=== PATIENT | female | born 1950 | race Caucasian/White ===

== ENCOUNTER 2020-10-29 13:55 | Inpatient (IN) | payer MEDICARE ==
[~2020-10-29] VITALS: Ht 165.1 cm; Wt 111.3 kg
--- NOTE | 2020-10-29 14:10 | PHYS DOC ---
Adult General Chief Complaint Chief Complaint: SHORTNESS OF BREATH HPI HPI Patient is a 70-year-old female presenting for shortness of breath. She presents via EMS from outlying [facility] where she [facility]. She has history of CAD, COPD, GERD, hyperlipidemia, bipolar, hypertension, heart failure and hypothyroidism. She states she has been at baseline health and on her typical 3 L of oxygen daily but admits approximately 3 days ago development of URI symptoms. She reports nasal congestion, rhinorrhea and postnasal drip that turned into worsened wheezing. Patient states she has been using her Spiriva inhaler in the morning and has had to use increase use of her albuterol inhaler every 6 hours in past 72 hours. This morning due to ongoing dyspnea, patient increased her oxygen from 3 L to 5 L via nasal cannula daily without significant improvement in symptoms prompting her to notify staff and request transfer to our ER for evaluation. Patient has had x2 Moderna vaccines Review of Systems Review of Systems Fourteen body systems of review of systems have been reviewed. See HPI for pertinent positives and negative responses, other guillermo all other systems are negative, non-pertinent or non-contributory Physical Exam Physical Exam Constitutional: Age-appropriate overweight female with mild respiratory distress on arrival, nontoxic in appearance HENT: Normocephalic, atraumatic, bilateral external ears normal, oropharynx moist, no oral exudates, nose normal. Nasal cannula in place Eyes: PERRLA, EOMI, conjunctiva normal, no discharge. Neck: Normal range of motion, no tenderness, supple, no stridor. Cardiovascular: Heart rate regular, sinus rhythm, no murmurs rubs or gallops Lungs & Thorax: Increased work of breathing with accessory muscle use and neck noted, patient has diffuse wheezes most prominent on end expiratory phases, bilateral rails to lower bases Abdomen: Bowel sounds normal, soft, no tenderness, no masses, no pulsatile masses. Nonsurgical abdomen, no peritoneal signs Skin: Warm, dry, no erythema, no rash. Back: No tenderness, no CVA tenderness. Extremities: No tenderness, no cyanosis, no clubbing, ROM intact, no edema. Neurologic: Alert and oriented X 3, grossly normal motor & sensory function, no focal deficits noted. Psychologic: Anxious affect and mood Current Patient Data Vital Signs Vital Signs Date Time Temp Pulse Resp B/P (MAP) Pulse Ox O2 Delivery O2 Flow Rate FiO2 10/29/20 13:55 97.7 61 33 201/98 (132) 100 Nasal Cannula 6.0 Vital Signs Date Time Temp Pulse Resp B/P (MAP) Pulse Ox O2 Delivery O2 Flow Rate FiO2 10/30/20 06:21 64 21 157/86 (109) 94 Nasal Cannula 4.0 10/30/20 06:00 98.1 Lab Results Laboratory Tests Test 10/29/20 14:30 10/29/20 16:39 10/29/20 23:08 10/30/20 05:42 White Blood Count 9.0 x10^3/uL 5.8 x10^3/uL Red Blood Count 3.74 x10^6/uL 3.40 x10^6/uL Hemoglobin 10.8 g/dL 9.8 g/dL Hematocrit 34.9 % 31.3 % Mean Corpuscular Volume 93 fL 92 fL Mean Corpuscular Hemoglobin 29 pg 29 pg Mean Corpuscular Hemoglobin Concent 31 g/dL 31 g/dL Red Cell Distribution Width 21.5 % 21.5 % Platelet Count 296 x10^3/uL 256 x10^3/uL Neutrophils (%) (Auto) 82 % 75 % Lymphocytes (%) (Auto) 7 % 9 % Monocytes (%) (Auto) 7 % 10 % Eosinophils (%) (Auto) 4 % 6 % Basophils (%) (Auto) 1 % 0 % Neutrophils # (Auto) 7.4 x10^3uL 4.3 x10^3uL Lymphocytes # (Auto) 0.6 x10^3/uL 0.5 x10^3/uL Monocytes # (Auto) 0.6 x10^3/uL 0.6 x10^3/uL Eosinophils # (Auto) 0.3 x10^3/uL 0.3 x10^3/uL Basophils # (Auto) 0.0 x10^3/uL 0.0 x10^3/uL Platelet Estimate Adequate Anisocytosis Slight Urine Collection Type Unknown Urine Color Yellow Urine Clarity Hazy Urine pH 6.0 Urine Specific Matador 1.015 Urine Protein 30 mg/dl Urine Glucose (UA) Neg mg/dL Urine Ketones (Stick) Neg mg/dL Urine Blood Trace Urine Nitrite Neg Urine Bilirubin Neg Urine Urobilinogen Dipstick 0.2 mg/dL Urine Leukocyte Esterase Trace Urine RBC 3-5 /HPF Urine WBC 11-20 /HPF Urine Squamous Epithelial Cells Mod /LPF Urine Bacteria Mod /HPF Sodium Level 141 mmol/L Potassium Level 4.3 mmol/L Chloride Level 103 mmol/L Carbon Dioxide Level 28 mmol/L Anion Gap 10 Blood Urea Nitrogen 10 mg/dL Creatinine 0.8 mg/dL Estimated GFR (Cockcroft-Gault) 71.1 Glucose Level 133 mg/dL Calcium Level 9.2 mg/dL Troponin I Quantitative 0.017 ng/mL AG-Ohv-S-Type Natriuretic Peptide 9175 pg/mL Coronavirus (COVID-19)(PCR) Negative SARS-CoV-2 Antigen (Rapid) Negative Glucose (Fingerstick) 136 mg/dL Current Medications Medications (Trade) Dose Ordered Sig/Norberto Route PRN Reason Start Time Stop Time Status Last Admin Dose Admin Albuterol/ Ipratropium (Duoneb) 3 ml STK-MED ONCE .ROUTE 10/29/20 14:18 10/29/20 14:18 DC Albuterol/ Ipratropium (Duoneb) 3 ml 1X ONCE NEB 10/29/20 14:30 10/29/20 16:06 DC 10/29/20 16:31 Nitroglycerin (Nitrostat) 0.4 mg PRN Q5MIN PRN SL CHEST PAIN 10/29/20 15:30 10/29/20 16:15 DC 10/29/20 16:03 Azithromycin 500 mg/Sodium Chloride 250 ml @ 250 mls/hr 1X ONCE IV 10/29/20 16:00 10/29/20 16:59 DC 10/29/20 16:12 Ceftriaxone Sodium 1 gm/ Sodium Chloride 50 ml @ 100 mls/hr 1X ONCE IV 10/29/20 16:00 10/29/20 16:29 DC 10/29/20 16:06 Furosemide (Lasix) 100 mg 1X ONCE IVP 10/29/20 16:00 10/29/20 16:06 DC 10/29/20 16:12 Sodium Chloride 50 ml @ As Directed STK-MED ONCE .ROUTE 10/29/20 16:00 10/29/20 16:01 DC Sodium Chloride 500 ml @ As Directed STK-MED ONCE .ROUTE 10/29/20 16:00 10/29/20 16:01 DC Azithromycin (Zithromax) 500 mg STK-MED ONCE IV 10/29/20 16:00 10/29/20 16:01 DC Ceftriaxone Sodium (Rocephin) 1 gm STK-MED ONCE .ROUTE 10/29/20 16:01 10/29/20 16:01 DC EKG EKG EKG ordered and interpreted by myself at 1419 hrs. as sinus rhythm at 61 bpm, pr olonged QTC at 471 otherwise unremarkable intervals, no axis deviation, no STEMI Radiology/Procedures Radiology/Procedures EXAMINATION: XR CHEST 1V CLINICAL HISTORY: Shortness of breath EXAM DATE/TIME: 10/29/2020 2:40 PM COMPARISON: None FINDINGS: Lines, Tubes, and Devices: Left-sided cardiac pacemaker/ICD. Cardiomediastinal Silhouette: Prominent cardiac silhouette, likely accentuated by low lung volumes. Lungs and Pleura: Questionable mild patchy opacities in the right mid to lower lung zone. No evidence of pleural effusion or pneumothorax. Bones and Soft Tissues: Extensive thoracic stabilization hardware. Cervicothoracic fusion hardware. Surgical clips projected over the lower right neck. Partially visualized left shoulder arthroplasty. IMPRESSION: Questionable mild patchy airspace disease in the right mid to lower lung zone. Electronically signed by: Сергей Horton DO (10/29/2020 2:54 PM) [facility] [place] Heart Score C/O Chest Pain: No HEART Score for Chest Pain: HEART Score for Chest Pain Response (Comments) Value History Moderately Suspicious 1 ECG Nonspecific Repolarizatio 1 Age > 65 2 Risk Factors >3 Risk Factors or Hx CAD 2 Troponin < Normal Limit 0 Total 6 Risk Factors: Risk Factors: DM, Current or recent (<one month) smoker, HTN, HLP, family history of CAD, obesity. Risk Scores: Risk Factors: DM, Current or recent (<one month) smoker, HTN, HLP, family history of CAD, obesity. Course & Med Decision Making Course & Med Decision Making Airway patent, breathing labored in mild distress, IV access and vitals obtained concerning for increased need of supplemental oxygen to maintain oxygen saturations greater than 90%, hypertension, and tachypnea HPI, physical examination and comprehensive ER work-up nonconcerning for any emergent or surgical issues With that said, patient case complicated. She presents in fluid overloaded state with history of heart failure of unknown etiology. Physical exam and ER findings concerning for acute exacerbation of CHF, 100 mg IV Lasix administered Patient also presenting with wheezes and increased O2 requirements. Question due to fluid overloaded state or underlying history of COPD for which she has had to use her rescue inhaler more which has helped her symptoms. 125 mg Solu- Medrol, breathing tx and IV antibiotics started I contacted hospitalist, Dr. Brody, and discussed need for hospitalization. He agreed and accepted patient under his care I have updated patient on proposed plan of care that included hospitalization for further inpatient medical management, she was amenable. She reiterates she is full CODE STATUS at time of admission. All questions and concerns addressed prior to admission to [facility] Drag Disclaimer [facility] Disclaimer This electronic medical record was generated, in whole or in part, using a voice recognition dictation system. Departure Departure: Impression: Primary Impression: Acute on chronic respiratory failure with hypoxia Additional Impression: Heart failure of unknown etiology Disposition: ADMITTED INPATIENT Admitting Physician: Ten Brody Condition: STABLE Problem Qualifiers ELIO LOVE DO Oct 29, 2020 14:10
[2020-10-29] MEDS ORDERED: IPRATRPIUM/ALBUTEROL 0.5/2.5MG 3 ML NEBU. ONE (14:18)
[2020-10-29] MEDS ORDERED: IPRATRPIUM/ALBUTEROL 0.5/2.5MG 3 ML NEBU. NEB ONE (14:30)
--- NOTE | 2020-10-29 14:56 | RAD ---
EXAMINATION: XR CHEST 1V CLINICAL HISTORY: Shortness of breath EXAM DATE/TIME: 10/29/2020 2:40 PM COMPARISON: None FINDINGS: Lines, Tubes, and Devices: Left-sided cardiac pacemaker/ICD. Cardiomediastinal Silhouette: Prominent cardiac silhouette, likely accentuated by low lung volumes. Lungs and Pleura: Questionable mild patchy opacities in the right mid to lower lung zone. No evidence of pleural effusion or pneumothorax. Bones and Soft Tissues: Extensive thoracic stabilization hardware. Cervicothoracic fusion hardware. S urgical clips projected over the lower right neck. Partially visualized left shoulder arthroplasty. IMPRESSION: Questionable mild patchy airspace disease in the right mid to lower lung zone. Electronically signed by: Сергей Horton DO (10/29/2020 2:54 PM) [facility]
[2020-10-29 15:03] LABS: BASO % 1 % (0-3); EOS # 0.3 x10^3/uL (0.0-0.7); EOS % 4 % (0-3); HEMATOCRIT 34.9 % (36.0-47.0); HEMOGLOBIN 10.8 g/dL (12.0-15.5); LYMPH # 0.6 x10^3/uL (1.0-4.8); LYMPH % 7 % (24-48); MEAN CORPUSCULAR HEMOGLOBIN 29 pg (25-35); MEAN CORPUSCULAR HGB CONC 31 g/dL (31-37); MEAN CORPUSCULAR VOLUME 93 fL (79-100); MONO # 0.6 x10^3/uL (0.0-1.1); MONO % 7 % (0-9); NEUT # 7.4 x10^3uL (1.8-7.7); NEUT % 82 % (31-73); PLATELET COUNT 296 x10^3/uL (140-400); RED BLOOD COUNT 3.74 x10^6/uL (3.50-5.40); RED CELL DISTRIBUTION WIDTH 21.5 % (11.5-14.5)
[2020-10-29 15:05] LABS: CALCIUM 9.2 mg/dL (8.5-10.1); CREATININE 0.8 mg/dL (0.6-1.0); GFR 71.1; POTASSIUM 4.3 mmol/L (3.5-5.1)
[2020-10-29 15:13] LABS: BACTERIA,URINE MOD /HPF (0-FEW); BILIRUBIN,URINE NEG (NEG); CLARITY,URINE HAZY; COLOR,URINE YELLOW; GLUCOSE,URINE NEG (NEG); NITRITE,URINE NEG (NEG); SQUAMOUS EPITHELIAL CELL,UR MOD /LPF; UROBILINOGEN,URINE 0.2 mg/dL (0.2 mg/dL)
[2020-10-29] MEDS ORDERED: NITROGLYCERIN SUBLINGUAL 0.4 MG BOTTLE OF 25. SL PRN (15:30)
--- NOTE | 2020-10-29 15:31 | EKG ---
[address] [address] Test Date: 2020-10-29 Test Time: 14:12:58 Pat Name: ZACHARY MCDUFFIE Department: Room: Gender: F Warp Hand: PATY : 1950 Requested By: ELIO LOVE Order Number: [id number] Reading MD: Measurements Intervals [place] Rate: 61 P: 90 AL: 174 QRS: -3 QRSD: 108 T: -5 QT: 462 QTc: 471 Interpretive Statements SINUS RHYTHM NO SPECIFIC ECG ABNORMALITIES RI6.02 No previous ECG available for comparison
[2020-10-29 15:32] LABS: ANISOCYTOSIS SLIGHT; PLT ESTIMATE ADEQUATE (ADEQUATE)
[2020-10-29] MEDS ORDERED: AZITHROMYCIN 500 MG VIAL. IV ONE (16:00)
[2020-10-29] MEDS ORDERED: IV NORMAL SALINE 50ML 50 ML ONE (16:00)
[2020-10-29] MEDS ORDERED: AZITHROMYCIN 500 MG in IV NORMAL SALINE 250ML 250 ML IV ONE (16:00)
[2020-10-29] MEDS ORDERED: FUROSEMIDE 100 MG/10 ML VIAL IVP ONE (16:00)
[2020-10-29] MEDS ORDERED: IV NORMAL SALINE 500ML 500 ML ONE (16:00)
[2020-10-29] MEDS ORDERED: cefTRIAXone SODIUM 1 GM VIAL ONE (16:01)
[2020-10-29] MEDS ORDERED: ACETAMINOPHEN 325 MG TABLET PO PRN (16:15)
[2020-10-29] MEDS: NITROGLYCERIN SUBLINGUAL 0.4 MG BOTTLE OF 25. SL PRN ×2 (17:26→18:15)
[2020-10-29 19:15] VITALS: BP 160/79
--- NOTE | 2020-10-29 19:15 | NUR ---
Pt was admitted to ICU bed 6 from ER via [facility], accompanied by EMS and nursing staff. Pt pulled over from [facility] to bed x4 assist. Admission assessment completed. VSS. Pt on baseline O2 at 4L NC with O2sat >92%. Pt placed on telemetry, SR or A.paced noted on monitor. Pt recently had hospitalization (10/06-10/19) and pacemaker placed at . Pt was discharge from to [facility] for PT/OT rehab with the hope of going back home to live alone in [place]. Pt with healing left chest pacemaker incision, left ODALYS. Pt with Patel catheter to dependent drainage, clear yellow urine noted. Health history and home medications reviewed with pt and paperwork from [facility]. Pt UTD on Covid vaccine, had Moderna in May and June. Pt refused her flu vaccine, stating "I will get it a little later in the year." PT/OT and CM consulted. Pradaxa & ASA for VTE. Pt was given written information regarding hospital policies, unit procedures and contact persons. Valuables were checked and left at bedside per pt request. Pt given box lunch which she ate independently.
[2020-10-29 20:00] VITALS: BP 145/83
[2020-10-29] MEDS ORDERED: IPRATRPIUM/ALBUTEROL 0.5/2.5MG 3 ML NEBU. NEB PRN (20:00)
[2020-10-29] MEDS ORDERED: NYSTATIN TOPICAL POWDER 15GM BOTTLE. TP PRN (20:00)
[2020-10-29] MEDS ORDERED: ACET500T68 PO (20:32)
[2020-10-29] MEDS ORDERED: POTA20TA4 PO (20:32)
[2020-10-29] MEDS ORDERED: VALP250C2 PO (20:32)
[2020-10-29] MEDS ORDERED: FERR325T14 PO (20:32)
[2020-10-29] MEDS ORDERED: IPRA3AMP29 NEB (20:32)
[2020-10-29] MEDS ORDERED: TIOT4MIS2 IH (20:32)
[2020-10-29] MEDS ORDERED: CHLO473M MM (20:32)
[2020-10-29] MEDS ORDERED: ALBU2.5V8 IH (20:32)
[2020-10-29] MEDS ORDERED: SENN8.6T11 PO (20:32)
[2020-10-29] MEDS ORDERED: METF850T8 PO (20:32)
[2020-10-29] MEDS ORDERED: POLY17PO5 PO (20:32)
[2020-10-29] MEDS ORDERED: PANT40TA6 PO (20:32)
[2020-10-29] MEDS ORDERED: METO100T7 PO (20:32)
[2020-10-29] MEDS ORDERED: NYST15PO9 TP (20:32)
[2020-10-29] MEDS ORDERED: DOCU50CA11 PO (20:32)
[2020-10-29] MEDS ORDERED: DULO60CA6 PO (20:32)
[2020-10-29] MEDS ORDERED: DABI150C PO (20:32)
[2020-10-29] MEDS ORDERED: [UNRECOGNIZED DRUG - CODE] PO (20:32)
[2020-10-29] MEDS ORDERED: ASPI-630 PO (20:32)
[2020-10-29] MEDS ORDERED: DOXY-181 PO (20:32)
[2020-10-29] MEDS ORDERED: GABA-586 PO (20:32)
[2020-10-29] MEDS ORDERED: TORS10TA3 PO (20:32)
[2020-10-29] MEDS ORDERED: ASCO500T3 PO (20:32)
[2020-10-29] MEDS ORDERED: ATOR40TA PO (20:32)
[2020-10-29] MEDS ORDERED: DEXTROSE 50% 25 GM / 50ML DISP.SYRIN. IV PRN (20:45)
[2020-10-29 21:00] VITALS: BP 146/76
[2020-10-29] MEDS ORDERED: ALBUTEROL SULFATE 2.5 MG/3 ML NEBU. NEB PRN (21:15)
[2020-10-29] MEDS: POLYETHYLENE GLYCOL 3350 17 GM PACKET. PO SCH (21:18)
[2020-10-29] MEDS: DOXYCYCLINE HYCLATE 100 MG TABLET PO SCH (21:19)
[2020-10-29] MEDS: DABIGATRAN ETEXILATE 150 MG CAPSULE. PO SCH (21:19)
[2020-10-29] MEDS: METOPROLOL TART IMMED RELEASE 50 MG TABLET PO SCH (21:19)
[2020-10-29] MEDS: IPRATRPIUM/ALBUTEROL 0.5/2.5MG 3 ML NEBU. NEB SCH (21:19)
[2020-10-29] MEDS: GABAPENTIN 300 MG CAPSULE. PO SCH ×2 (21:20→23:42)
[2020-10-29] MEDS: CHLORHEXIDINE 0.12% 15 ML MOUTHWASH. MM SCH (21:20)
[2020-10-29] MEDS: ATORVASTATIN CALCIUM 20 MG TABLET PO SCH (21:20)
[2020-10-29] MEDS: VALPROIC ACID 250 MG CAPSULE. PO SCH (21:20)
[2020-10-29] MEDS: ACETAMINOPHEN 500 MG TABLET PO SCH (21:20)
[2020-10-29 22:00] VITALS: BP 144/72
[2020-10-29 23:00] VITALS: BP 156/75
[2020-10-29 23:50] VITALS: BP 166/77
[2020-10-30] VITALS (14 sets, daily range): BP systolic 150–174; BP diastolic 69–93
[2020-10-30] MEDS: LEVOTHYROXINE 100 MCG TABLET PO SCH (05:44)
[2020-10-30] MEDS: IPRATRPIUM/ALBUTEROL 0.5/2.5MG 3 ML NEBU. NEB SCH ×2 (06:00→20:01)
[2020-10-30 06:07] LABS: BASO % 0 % (0-3); EOS # 0.3 x10^3/uL (0.0-0.7); EOS % 6 % (0-3); HEMATOCRIT 31.3 % (36.0-47.0); HEMOGLOBIN 9.8 g/dL (12.0-15.5); LYMPH # 0.5 x10^3/uL (1.0-4.8); LYMPH % 9 % (24-48); MEAN CORPUSCULAR HEMOGLOBIN 29 pg (25-35); MEAN CORPUSCULAR HGB CONC 31 g/dL (31-37); MEAN CORPUSCULAR VOLUME 92 fL (79-100); MONO # 0.6 x10^3/uL (0.0-1.1); MONO % 10 % (0-9); NEUT # 4.3 x10^3uL (1.8-7.7); NEUT % 75 % (31-73); PLATELET COUNT 256 x10^3/uL (140-400); RED CELL DISTRIBUTION WIDTH 21.5 % (11.5-14.5); WHITE BLOOD COUNT 5.8 x10^3/uL (4.0-11.0)
[2020-10-30 06:19] LABS: CALCIUM 8.5 mg/dL (8.5-10.1); CREATININE 0.8 mg/dL (0.6-1.0); GFR 71.1; POTASSIUM 3.4 mmol/L (3.5-5.1)
[2020-10-30] MEDS ORDERED: GABAPENTIN 300 MG CAPSULE. PO SCH (09:00)
[2020-10-30] MEDS ORDERED: FERROUS SULFATE 325 MG TABLET. PO SCH (09:00)
[2020-10-30] MEDS ORDERED: DOCUSATE 100 MG/10 ML SOLUTION. PO SCH (09:00)
[2020-10-30] MEDS: BUDESONIDE 0.5 MG/2 ML NEBU NEB SCH ×2 (10:14→10:28)
[2020-10-30] MEDS: POTASSIUM CHLORIDE 20 MEQ TABLET.ER. PO SCH ×2 (10:24→16:25)
[2020-10-30] MEDS: METOPROLOL TART IMMED RELEASE 50 MG TABLET PO SCH ×2 (10:24→20:17)
[2020-10-30] MEDS: DULoxetine HCL 60 MG CAPSULE.DR PO SCH (10:24)
[2020-10-30] MEDS: DOXYCYCLINE HYCLATE 100 MG TABLET PO SCH ×2 (10:25→20:18)
[2020-10-30] MEDS: ACETAMINOPHEN 500 MG TABLET PO SCH ×4 (10:25→20:18)
[2020-10-30] MEDS: metFORMIN 850 MG TABLET PO SCH (10:25)
[2020-10-30] MEDS: ASPIRIN CHEWABLE 81 MG TABLET. PO SCH (10:25)
[2020-10-30] MEDS: DABIGATRAN ETEXILATE 150 MG CAPSULE. PO SCH ×2 (10:25→20:18)
[2020-10-30] MEDS: PANTOPRAZOLE 40 MG TABLET. PO SCH (10:25)
[2020-10-30] MEDS: VALPROIC ACID 250 MG CAPSULE. PO SCH ×3 (10:25→20:19)
[2020-10-30] MEDS: ASCORBIC ACID 500 MG TABLET PO SCH (10:25)
[2020-10-30] MEDS: POLYETHYLENE GLYCOL 3350 17 GM PACKET. PO SCH ×2 (10:26→20:18)
[2020-10-30] MEDS: CHLORHEXIDINE 0.12% 15 ML MOUTHWASH. MM SCH (10:31)
--- NOTE | 2020-10-30 11:07 | HP ---
ATTENDING PHYSICIAN: Dr. Brody. CHIEF COMPLAINT: Shortness of breath. HISTORY OF PRESENT ILLNESS: The patient is a 70-year-old female who recently went to a fpc in [place], [place]. She normally lives in [place]. She had increasing shortness of breath, dyspnea, weight gain. Chest x-ray in the ED demonstrated vascular congestion, cardiomegaly. She also has a permanent pacemaker. There is extensive hardware in the left shoulder following a total shoulder arthroplasty. She also has hardware in her neck, cervical spine from previous surgery for stabilization of her neck. She denied any chest pain. She is diabetic. She does take quite a bit of meds. She drinks quite a bit of fluids. She is admitted then with volume overload and exacerbation of congestive heart failure. PAST MEDICAL HISTORY: Significant for degenerative arthritis, CHF, permanent pacemaker, type 2 diabetes, essential hypertension, and some COPD. CURRENT MEDICATIONS: Include Tylenol, albuterol, ascorbic acid, aspirin, Lipitor, Pradaxa as an anticoagulant, docusate, doxycycline, Cymbalta, ferrous sulfate, Neurontin, Synthroid, metformin, nystatin, Protonix, MiraLax, senna, Spiriva, torsemide, and Depakote. ALLERGIES: SHE HAS ALLERGIES TO APIXABAN AND RIVAROXABAN, I AM NOT SURE WHAT THE REACTION IT IS FOR XARELTO AND ELIQUIS. She is on Pradaxa. SOCIAL HISTORY: She is a nonsmoker, nondrinker. She never . She has no children. She is retired. FAMILY HISTORY: Mom at age 52 premature of heart disease. Father at age 59 of heart disease. REVIEW OF SYSTEMS: Significant for dyspnea with exertion, dry mouth. She has chronic back pain. All other systems reviewed and turned out to be negative. PHYSICAL EXAMINATION: GENERAL: When I saw her, this is a pleasant, alert female. INITIAL VITAL SIGNS: Showed a blood pressure of 157/86, pulse is 62 and regular. She was afebrile, oxygen saturation 95% on 4 liters by nasal cannula. HEENT: Head is without trauma. Pupils are reactive. Sclerae nonicteric. Oropharynx clear. NECK: Supple. LUNGS: Bibasilar crackles. CARDIOVASCULAR: Showed regular heart tones. No gallops. ABDOMEN: Soft. EXTREMITIES: Without edema. NEUROLOGIC FUNCTION: Focally intact. SKIN: Warm and dry. PERTINENT LABORATORY STUDIES: Hemoglobin on admission was 10.8 g/dL with a white count of 9000. Electrolytes within normal range. Nonfasting blood sugar 135. Cardiac enzymes negative for coronary ischemia. BNP was 9175. Chest x-ray as noted. ASSESSMENT: 1. A 70-year-old female with acute on chronic respiratory failure. 2. Acute on chronic congestive heart failure, most likely systolic. 3. Obesity. 4. Hypothyroidism, on replacement. 5. Degenerative arthritis of cervical spine and left shoulder. 6. Permanent pacemaker. 7. Generalized debilitation. 8. Hypertension. 9. Hyperlipidemia. PLAN: 1. Admit to the inpatient unit. 2. 1200 mL daily fluid restriction. 3. Lasix ordered intravenously twice a day. 4. Daily weights. 5. Serial chemistries. 6. Potassium and magnesium replacement. 7. Simplification of meds to minimize her intake and help with her dry mouth. Her prognosis is fair. She is a full code per advanced directive. JEFFREY DR: Ric TID: [id number]
[2020-10-30] MEDS: FUROSEMIDE 40 MG/4 ML VIAL IVP SCH (16:25)
[2020-10-30] MEDS: ATORVASTATIN CALCIUM 20 MG TABLET PO SCH (20:18)
[2020-10-31] VITALS (7 sets, daily range): BP systolic 143–178; BP diastolic 66–100
--- NOTE | 2020-10-31 04:04 | NUR ---
Pt requested this RN contact [facility] to inquire about having her CPAP brought up by their SW Emily tomorrow. Spoke with RN Estrella who offered to have one of their employees bring it over when they get off work. CPAP was delivered around 2330. Pt now wearing CPAP with 4L NC. Pt reports feeling much more comfortable. Maintaining sats 93-97%.
[2020-10-31] MEDS: IPRATRPIUM/ALBUTEROL 0.5/2.5MG 3 ML NEBU. NEB SCH ×4 (04:38→22:10)
[2020-10-31 06:25] LABS: ALBUMIN 2.5 g/dL (3.4-5.0); ALBUMIN/GLOBULIN RATIO 0.6 (1.0-1.7); CALCIUM 8.4 mg/dL (8.5-10.1); CREATININE 0.9 mg/dL (0.6-1.0); GFR 62.1; POTASSIUM 3.5 mmol/L (3.5-5.1); TOTAL BILIRUBIN 0.5 mg/dL (0.2-1.0); TOTAL PROTEIN 6.4 g/dL (6.4-8.2)
[2020-10-31] MEDS: LEVOTHYROXINE 100 MCG TABLET PO SCH (06:32)
[2020-10-31] MEDS: POTASSIUM CHLORIDE 20 MEQ TABLET.ER. PO SCH ×3 (08:18→17:08)
[2020-10-31] MEDS: METOPROLOL TART IMMED RELEASE 50 MG TABLET PO SCH ×2 (08:18→20:40)
[2020-10-31] MEDS: ASCORBIC ACID 500 MG TABLET PO SCH (08:18)
[2020-10-31] MEDS: VALPROIC ACID 250 MG CAPSULE. PO SCH ×2 (08:18→20:39)
[2020-10-31] MEDS: POLYETHYLENE GLYCOL 3350 17 GM PACKET. PO SCH ×2 (08:18→20:39)
[2020-10-31] MEDS: metFORMIN 850 MG TABLET PO SCH (08:18)
[2020-10-31] MEDS: DOXYCYCLINE HYCLATE 100 MG TABLET PO SCH ×2 (08:19→20:39)
[2020-10-31] MEDS: ACETAMINOPHEN 500 MG TABLET PO SCH ×4 (08:19→20:39)
[2020-10-31] MEDS: FUROSEMIDE 40 MG/4 ML VIAL IVP SCH ×2 (08:19→14:30)
[2020-10-31] MEDS: PANTOPRAZOLE 40 MG TABLET. PO SCH (08:19)
[2020-10-31] MEDS: ASPIRIN CHEWABLE 81 MG TABLET. PO SCH (08:20)
[2020-10-31] MEDS: DULoxetine HCL 60 MG CAPSULE.DR PO SCH (08:20)
[2020-10-31] MEDS: DABIGATRAN ETEXILATE 150 MG CAPSULE. PO SCH ×2 (08:20→20:40)
[2020-10-31] MEDS: DOCUSATE SODIUM 100 MG CAPSULE PO SCH (08:20)
[2020-10-31] MEDS ORDERED: FUROSEMIDE 40 MG/4 ML VIAL IVP SCH (09:00)
[2020-10-31] MEDS ORDERED: MAGNESIUM SULFATE 1GM 100 ML IV ONE (09:45)
[2020-10-31] MEDS: LISINOPRIL 20 MG TABLET PO SCH (11:09)
[2020-10-31] MEDS: BUDESONIDE 0.5 MG/2 ML NEBU NEB SCH ×2 (11:51→22:10)
--- NOTE | 2020-10-31 14:01 | PN ---
DATE: 10/31/2020 ATTENDING PHYSICIAN: Dr. Brody. SUBJECTIVE: The patient is doing better. She is breathing better, less bloated. She is less dyspneic. She has a good diuresis. Patel catheter is in place. OBJECTIVE FINDINGS: VITAL SIGNS: Blood pressure this morning is 178/97, pulse is 60 and regular. She is afebrile. Oxygen saturation 94% on 4 liters by nasal cannula. HEENT: Head is without trauma. Pupils are reactive. Sclerae nonicteric. Oropharynx clear. NECK: Supple, no bruits. LUNGS: Diminished breath sounds at bases. Minimal wheezing still identified. CARDIOVASCULAR: There are distant heart tones. Hyperdynamic precordium. ABDOMEN: Soft. EXTREMITIES: Showed decreased swelling. SKIN: Warm and dry. PERTINENT LABORATORY STUDIES: Her chemistry showed a potassium of 3.5 mEq, creatinine is the same at 0.9 mg/dL suggesting this is third space fluids that we are immobilizing, weight is still pending. ASSESSMENT: 1. A 70-year-old female with hypertensive heart failure. 2. Underlying hypertension. 3. Volume overload. 4. History of permanent pacemaker. 5. Chronic anticoagulation. 6. Morbid obesity. 7. Hypothyroidism, on replacement. 8. Hyperlipidemia. PLAN: 1. Continue diuresis. Lasix will be administered twice a day. 2. Serial chemistries. 3. Fluid restriction. 4. Daily weights. 5. Potassium and magnesium replacement. 6. BP control. MARINO/LILIANA DR: MARINO/zulay TID: [id number]
[2020-10-31] MEDS: ATORVASTATIN CALCIUM 20 MG TABLET PO SCH (20:40)
[2020-11-01 00:20] VITALS: BP 134/59
[2020-11-01 03:53] VITALS: BP 147/65
[2020-11-01] MEDS: LEVOTHYROXINE 100 MCG TABLET PO SCH (05:23)
[2020-11-01] MEDS: IPRATRPIUM/ALBUTEROL 0.5/2.5MG 3 ML NEBU. NEB SCH ×4 (05:42→21:21)
[2020-11-01 06:34] LABS: ALBUMIN 2.6 g/dL (3.4-5.0); ALBUMIN/GLOBULIN RATIO 0.6 (1.0-1.7); CALCIUM 8.6 mg/dL (8.5-10.1); CREATININE 1.1 mg/dL (0.6-1.0); GFR 49.2; POTASSIUM 3.5 mmol/L (3.5-5.1); TOTAL BILIRUBIN 0.5 mg/dL (0.2-1.0)
[2020-11-01 08:00] VITALS: BP 168/101
[2020-11-01] MEDS: DULoxetine HCL 60 MG CAPSULE.DR PO SCH (08:12)
[2020-11-01] MEDS: ASPIRIN CHEWABLE 81 MG TABLET. PO SCH (08:17)
[2020-11-01] MEDS: FUROSEMIDE 40 MG/4 ML VIAL IVP SCH ×2 (08:17→13:05)
[2020-11-01] MEDS: DOCUSATE SODIUM 100 MG CAPSULE PO SCH (08:17)
[2020-11-01] MEDS: PANTOPRAZOLE 40 MG TABLET. PO SCH (08:17)
[2020-11-01] MEDS: DOXYCYCLINE HYCLATE 100 MG TABLET PO SCH ×2 (08:17→20:38)
[2020-11-01] MEDS: POTASSIUM CHLORIDE 20 MEQ TABLET.ER. PO SCH ×3 (08:17→17:43)
[2020-11-01] MEDS: POLYETHYLENE GLYCOL 3350 17 GM PACKET. PO SCH ×3 (08:17→20:38)
[2020-11-01] MEDS: ACETAMINOPHEN 500 MG TABLET PO SCH ×4 (08:17→20:39)
[2020-11-01] MEDS: DABIGATRAN ETEXILATE 150 MG CAPSULE. PO SCH ×2 (08:18→20:39)
[2020-11-01] MEDS: METOPROLOL TART IMMED RELEASE 50 MG TABLET PO SCH ×2 (08:18→20:39)
[2020-11-01] MEDS: metFORMIN 850 MG TABLET PO SCH (08:18)
[2020-11-01] MEDS: LISINOPRIL 20 MG TABLET PO SCH (08:18)
[2020-11-01] MEDS: VALPROIC ACID 250 MG CAPSULE. PO SCH ×2 (11:29→20:38)
[2020-11-01 12:00] VITALS: BP 175/93
[2020-11-01] MEDS ORDERED: MAGNESIUM SULFATE 1GM 100 ML IV ONE (12:00)
[2020-11-01] MEDS: BUDESONIDE 0.5 MG/2 ML NEBU NEB SCH ×2 (13:03→21:21)
[2020-11-01 19:00] VITALS: BP 161/70
[2020-11-01] MEDS: ATORVASTATIN CALCIUM 20 MG TABLET PO SCH (20:38)
--- NOTE | 2020-11-02 00:02 | PN ---
DATE: 11/01/2020 ATTENDING PHYSICIAN: Dr. Brody. SUBJECTIVE: She is doing better. Breathing is less labored. She is on chronic oxygen at home. Her ankle swelling and mid-section swelling is much improved. OBJECTIVE FINDINGS: VITAL SIGNS: Blood pressure this morning is 147/65, pulse is 61 and regular, she is afebrile, oxygen saturation 99% on 4 liters. HEENT: Head is without trauma. Pupils are reactive. Sclerae nonicteric. Oropharynx is clear. NECK: Supple. LUNGS: Actually clear. CARDIOVASCULAR: Showed regular heart tones. No gallops. ABDOMEN: Obese, protuberant. No organomegaly. Bowel sounds are normoactive. EXTREMITIES: Showed decreased swelling. There is still 2+ edema extending up to her knees. SKIN: Warm and dry. PSYCHIATRIC: Affect good. PERTINENT LABORATORY STUDIES: Potassium is 3.5 mEq, sodium 144, creatinine stable at 1.1 mg/dL. ASSESSMENT: 1. A 70-year-old female with volume overload. 2. Hypertension and hypertensive heart disease. 3. Volume overload, improved. 4. Permanent pacemaker. 5. Chronic anticoagulation. 6. Morbid obesity. 7. Hypothyroidism, on replacement. 8. Hyperlipidemia. PLAN: 1. Continue diuresis, Lasix twice a day. 2. Magnesium and potassium replacement. 3. Remove Patel catheter. 4. Daily weights. 5. Fluid restriction. 6. BP control. 7. Tentative discharge plans back to [facility] for several more days at the time of discharge. JUAN/JUAN ALBERTO DR: Ric TID: [id number]
[2020-11-02 01:19] VITALS: BP 135/67
[2020-11-02] MEDS: LEVOTHYROXINE 100 MCG TABLET PO SCH (05:59)
[2020-11-02] MEDS: IPRATRPIUM/ALBUTEROL 0.5/2.5MG 3 ML NEBU. NEB SCH (06:09)
[2020-11-02 06:13] VITALS: BP 168/77
[2020-11-02 07:21] LABS: ALBUMIN 2.7 g/dL (3.4-5.0); ALBUMIN/GLOBULIN RATIO 0.6 (1.0-1.7); CALCIUM 8.7 mg/dL (8.5-10.1); CREATININE 0.9 mg/dL (0.6-1.0); GFR 62.1; POTASSIUM 3.7 mmol/L (3.5-5.1); TOTAL BILIRUBIN 0.5 mg/dL (0.2-1.0); TOTAL PROTEIN 7.1 g/dL (6.4-8.2)
[2020-11-02] MEDS ORDERED: LACTOBACILLUS RHAMNOSUS GG 1 CAPSULE. PO SCH (09:00)
[2020-11-02] MEDS: DABIGATRAN ETEXILATE 150 MG CAPSULE. PO SCH (09:01)
[2020-11-02] MEDS: DOXYCYCLINE HYCLATE 100 MG TABLET PO SCH (09:01)
[2020-11-02] MEDS: metFORMIN 850 MG TABLET PO SCH (09:01)
[2020-11-02] MEDS: LISINOPRIL 20 MG TABLET PO SCH (09:01)
[2020-11-02] MEDS: DULoxetine HCL 60 MG CAPSULE.DR PO SCH (09:01)
[2020-11-02] MEDS: POTASSIUM CHLORIDE 20 MEQ TABLET.ER. PO SCH ×2 (09:01→09:02)
[2020-11-02] MEDS: METOPROLOL TART IMMED RELEASE 50 MG TABLET PO SCH (09:01)
[2020-11-02] MEDS: PANTOPRAZOLE 40 MG TABLET. PO SCH (09:02)
[2020-11-02] MEDS: BUDESONIDE 0.5 MG/2 ML NEBU NEB SCH (09:02)
[2020-11-02] MEDS: ASPIRIN CHEWABLE 81 MG TABLET. PO SCH (09:02)
[2020-11-02] MEDS: DOCUSATE SODIUM 100 MG CAPSULE PO SCH (09:02)
[2020-11-02] MEDS: FUROSEMIDE 40 MG/4 ML VIAL IVP SCH (09:02)
[2020-11-02] MEDS: VALPROIC ACID 250 MG CAPSULE. PO SCH (09:03)
[2020-11-02] MEDS: POLYETHYLENE GLYCOL 3350 17 GM PACKET. PO SCH (09:03)
[2020-11-02] MEDS: ACETAMINOPHEN 500 MG TABLET PO SCH (09:05)
--- NOTE | 2020-11-02 10:35 | DISCH ---
DISCHARGE ORDERS DISCHARGE DATE: Nov 02, 2020 FINAL DIAGNOSIS A/C Diastolic chf hcap htn hld CONDITION AT DISCHARGE: Stable Code Status: Full SNF STAY <30 DAYS: Yes POST DISCHARGE ORDERS: ACTIVITY ORDERS: Activity as tolerated DIET AFTER DISCHARGE: Cardiac DISCHARGE MEDICATIONS: Home Meds Reported Medications Potassium Chloride (POTASSIUM CHLORIDE ) 20 Meq Tablet.er, 20 MEQ PO BID for SUPPLEMENT LAST DOSE GIVEN: DATE: TIME: NEXT DOSE DUE: DATE: TIME: 10/29/20 Pantoprazole Sodium (PANTOPRAZOLE SODIUM) 40 Mg Tablet.dr, 40 MG PO DAILY for GERD LAST DOSE GIVEN: DATE: TIME: NEXT DOSE DUE: DATE: TIME: 10/29/20 Nystatin (NYSTATIN) 15 Gm Powder, 1 NANDO TP PRN Q12HR PRN for Yeast under folds LAST DOSE GIVEN: DATE: TIME: NEXT DOSE DUE: DATE: TIME: 10/29/20 Polyethylene Glycol 3350 (MIRALAX) 17 Gm Powd.pack, 2 PACKET PO BID for Constipation LAST DOSE GIVEN: DATE: TIME: NEXT DOSE DUE: DATE: TIME: 10/29/20 Metformin Hcl (METFORMIN HCL) 850 Mg Tablet, 850 MG PO DAILYWBKFT for ANTI- DIABETIC LAST DOSE GIVEN: DATE: TIME: NEXT DOSE DUE: DATE: TIME: 10/29/20 Metoprolol Tartrate (METOPROLOL TARTRATE) 100 Mg Tablet, 100 MG PO BID for FOR HYPERTENSION LAST DOSE GIVEN: DATE: TIME: NEXT DOSE DUE: DATE: TIME: 10/29/20 Atorvastatin Calcium (LIPITOR) 40 Mg Tablet, 40 MG PO QHS for FOR CHOLESTEROL LAST DOSE GIVEN: DATE: TIME: NEXT DOSE DUE: DATE: TIME: 10/29/20 Levothyroxine Sodium (Levo-T) 200 Mcg Tablet, 200 MCG PO DAILY06 for Low Thyriod LAST DOSE GIVEN: DATE: TIME: NEXT DOSE DUE: DATE: TIME: 10/29/20 Gabapentin (GABAPENTIN ) 300 Mg Capsule, 300 MG PO Q4HRS for NEUROGENIC PAIN LAST DOSE GIVEN: DATE: TIME: NEXT DOSE DUE: DATE: TIME: 10/29/20 Ferrous Sulfate (FERROUS SULFATE) 325 Mg Tablet, 325 MG PO DAILY for Iron S upplement LAST DOSE GIVEN: DATE: TIME: NEXT DOSE DUE: DATE: TIME: 10/29/20 Doxycycline Monohydrate (DOXYCYCLINE MONOHYDRATE) 100 Mg Capsule, 100 MG PO BID for Upper Resp Infection for 10 Days LAST DOSE GIVEN: DATE: TIME: NEXT DOSE DUE: DATE: TIME: 10/29/20 Ascorbic Acid (ASCORBIC ACID) 500 Mg Tablet, 500 MG PO DAILY for Supplement LAST DOSE GIVEN: DATE: TIME: NEXT DOSE DUE: DATE: TIME: 10/29/20 Valproic Acid (VALPROIC ACID) 250 Mg Capsule, 250 MG PO BID for Bipolar LAST DOSE GIVEN: DATE: TIME: NEXT DOSE DUE: DATE: TIME: 10/29/20 Tiotropium [place] (Spiriva Respimat) 4 Gm Mist.inhal, 2 PUFF IH DAILY for Bronchospams LAST DOSE GIVEN: DATE: TIME: NEXT DOSE DUE: DATE: TIME: 10/29/20 Sennosides (SENNA LAXATIVE) 8.6 Mg Tablet, 8.6 MG PO BID for Constipation LAST DOSE GIVEN: DATE: TIME: NEXT DOSE DUE: DATE: TIME: 10/29/20 Dabigatran Etexilate Mesylate (PRADAXA) 150 Mg Capsule, 150 MG PO BID for Blood thinner LAST DOSE GIVEN: DATE: TIME: NEXT DOSE DUE: DATE: TIME: 10/29/20 Torsemide (TORSEMIDE) 10 Mg Tablet, 10 MG PO PRN Q6HRS PRN for Diuretic Take double dose QID if increased swelling or 5 lbs weight gain LAST DOSE GIVEN: DATE: TIME: NEXT DOSE DUE: DATE: TIME: 10/29/20 Duloxetine Hcl (CYMBALTA) 60 Mg Capsule.dr, 60 MG PO DAILY for Depression LAST DOSE GIVEN: DATE: TIME: NEXT DOSE DUE: DATE: TIME: 10/29/20 Docusate Sodium (Colace Clear) 50 Mg Capsule, 50 MG PO DAILY for Constipation LAST DOSE GIVEN: DATE: TIME: NEXT DOSE DUE: DATE: TIME: 10/29/20 Chlorhexidine Gluconate (CHLORHEXIDINE GLUCONATE) 473 Ml Mouthwash, 15 ML MM BID for Gingivitis LAST DOSE GIVEN: DATE: TIME: NEXT DOSE DUE: DATE: TIME: 10/29/20 Ipratropium/Albuterol Sulfate (DUONEB 0.5-3(2.5) MG/3 ML) 3 Ml Ampul.neb, 3 ML NEB QID PRN for SHORTNESS OF BREATH LAST DOSE GIVEN: DATE: TIME: NEXT DOSE DUE: DATE: TIME: 10/29/20 Aspirin (ASPIRIN) 81 Mg Tab.chew, 81 MG PO DAILY for Heart Health LAST DOSE GIVEN: DATE: TIME: NEXT DOSE DUE: DATE: TIME: 10/29/20 Albuterol Sulfate (PROAIR HFA INHALER) 8.5 Gm Hfa.aer.ad, 2 PUFF IH PRN Q6HRS PRN for wheezing for 21 Days LAST DOSE GIVEN: DATE: TIME: NEXT DOSE DUE: DATE: TIME: 10/29/20 Acetaminophen (ACETAMINOPHEN) 500 Mg Tablet, 500 MG PO QID for Pain LAST DOSE GIVEN: DATE: TIME: NEXT DOSE DUE: DATE: TIME: 10/29/20 PO RONQUILLO MD Nov 02, 2020 10:35
[2020-11-02 11:17] VITALS: BP 166/78
--- NOTE | 2020-11-02 11:31 | DS ---
DATE OF DISCHARGE: 11/02/2020 HOSPITAL COURSE: The patient is a 70-year-old female patient who was a resident at [facility], who was brought to the Emergency Room with a complaint of upper respiratory symptoms for the last 3 days. She reports nasal congestion, rhinorrhea, postnasal drip, but trending towards some wheezing. She also has been using her Spiriva inhaler in the morning and has had to use increasing use of her albuterol inhaler every 6 hours in the last 72 hours. She presented to the Emergency Room with ongoing dyspnea and increased requirement of oxygen from 3-5 liters via nasal cannula daily without significant improvement in her symptoms, prompting her to notify the staff and requested transfer to the Emergency Room of [facility]. The patient has been vaccinated x2 with Moderna vaccine. She was extensively investigated and was admitted with acute on chronic hypoxic respiratory failure, congestive heart failure, likely acute on chronic diastolic. She does also have infiltrate in her right lung and was treated empirically with antibiotics and she did actually very well. PHYSICAL EXAMINATION: GENERAL: When I saw her today, she was sitting comfortably in her chair in no apparent respiratory distress. She was pale, no jaundice, cyanosed or thyromegaly. No jugular venous distention. No limb edema. VITAL SIGNS: Her heart rate was 62, blood pressure is 168/77, temperature 96.8, respiratory rate was 15 and oxygen saturation was 97% on 4 liters oxygen. HEAD, EYES, EARS, NOSE, AND THROAT: Normocephalic, atraumatic. NECK: Supple. HEART: Showed normal first and second heart sounds, no gallop, rub or murmur. CHEST: Clear to auscultation, no crepitation or rhonchi. ABDOMEN: Distended, soft, nontender, no guarding or rigidity. No organomegaly. All hernial orifice intact. Bowel sounds normal. NEUROLOGIC: She was grossly intact. Her intake over the last 24 hours was 1070, output was 3350. LABORATORY DATA: As of this morning, her white cell count was 5800, hemoglobin 10, hematocrit 31, MCV 92 and platelet count 256,000. Her chemistry this morning showed a serum sodium 144, potassium 3.7, chloride 102, bicarbonate 33, anion gap of 9, BUN 20, creatinine 0.9. Estimated GFR was 62 mL per minute. Her glucose 140, calcium was 8.7. Total bilirubin, AST, ALT is normal. Alkaline phosphatase slightly elevated. Total protein 7.1, albumin was 2.5. DISCHARGE MEDICATIONS: She was discharged to [facility] to continue on lisinopril 20 mg once a day, Colace 100 mg daily. She is on furosemide 20 mg twice a day, potassium chloride 20 mEq twice a day, DuoNeb 3 mL by nebulizer 4 times a day, cefdinir 300 mg twice a day for 6 more days, valproic acid 250 mg twice a day, gabapentin 300 mg 3 times a day, Protonix 40 mg once a day, ferrous sulfate 325 mg once a day, duloxetine 60 mg once a day, aspirin 81 mg once a day, ascorbic acid 500 mg daily, Pulmicort 0.5 mg twice a day, potassium chloride 20 mEq twice a day, metformin 850 mg with breakfast, levothyroxine sodium 200 mcg once a day, metoprolol tartrate 100 mg twice a day, doxycycline 100 mg twice a day for 6 more days, atorvastatin calcium 40 mg at bedtime, and polyethylene glycol 17 grams daily, acetaminophen 650 mg every 4 hours as needed. FINAL DISCHARGE DIAGNOSES: 1. Acute on chronic hypoxic respiratory failure. 2. Acute on chronic, probably diastolic congestive heart failure, hypertension, hyperlipidemia, hypothyroidism, morbid obesity and obstructive sleep apnea, chronic anticoagulation likely for atrial fibrillation. BAKARI DR: [place] TID: [id number]
--- NOTE | 2020-11-02 13:24 | NUR ---
Patient discharged back to the [facility] as requested. Report was called to the RN. Patient left the unit via wheelchair escorted by the CRITICAL CARE PHYSICIAN. Patient was transported by [facility] personnel.
== END 2020-11-02 11:55 | DRG 177 ==
LOC: ER 13:55 → ICU 16:07
PROVIDERS: ADMIT Hospitalist; ATTEND Hospitalist
PROC: 5A09357 Assistance with Respiratory Ventilation, Less than 24 Consecutive Hours, Continuous Positive Airway Pressure (ICD-10-PCS; 2020-10-31)
PROC: 5A09357 Assistance with Respiratory Ventilation, Less than 24 Consecutive Hours, Continuous Positive Airway Pressure (ICD-10-PCS; 2020-11-01)
PROC: 5A09357 Assistance with Respiratory Ventilation, Less than 24 Consecutive Hours, Continuous Positive Airway Pressure (ICD-10-PCS; principal; 2020-11-02)
DX: J15.6 Pneumonia due to other Gram-negative bacteria (principal); J96.21 Acute and chronic respiratory failure with hypoxia; I50.33 Acute on chronic diastolic (congestive) heart failure; I11.0 Hypertensive heart disease with heart failure; J15.9 Unspecified bacterial pneumonia; E03.9 Hypothyroidism, unspecified; E11.9 Type 2 diabetes mellitus without complications; E66.01 Morbid (severe) obesity due to excess calories; E78.5 Hyperlipidemia, unspecified; G47.33 Obstructive sleep apnea (adult) (pediatric); I25.10 Atherosclerotic heart disease of native coronary artery without angina pectoris; I48.91 Unspecified atrial fibrillation; J44.9 Chronic obstructive pulmonary disease, unspecified; M47.812 Spondylosis without myelopathy or radiculopathy, cervical region; Z79.01 Long term (current) use of anticoagulants; Z95.0 Presence of cardiac pacemaker; Z96.619 Presence of unspecified artificial shoulder joint; K21.9 Gastro-esophageal reflux disease without esophagitis; M19.90 Unspecified osteoarthritis, unspecified site; Z20.822 Contact with and (suspected) exposure to COVID-19; Z88.8 Allergy status to other drugs, medicaments and biological substances
CPT/HCPCS: 36415; 71045; 80048; 80053; 81001; 82947; 83880; 84484; 85025; 87077; 87086; 87186; 87426; 93005; 94640; 96365; 96368; 96375; J0456; J0696; J1940; J3475; J7050; U0003; 97110; 97116; 97530; 99285-25; J7613